=== PATIENT | male | born 1960 | race Caucasian/White ===

== ENCOUNTER 2019-05-25 10:19 | Inpatient (IN) ==
[2019-05-25] MEDS ORDERED: SINEMET 25/100 PO PRN (12:17)
[2019-05-25] MEDS ORDERED: SENOKOT PO PRN (12:17)
[2019-05-25] MEDS ORDERED: BENTYL PO PRN (12:17)
[2019-05-25] MEDS ORDERED: DESYREL PO PRN (12:17)
[2019-05-25] MEDS ORDERED: MOTRIN PO PRN (12:17)
[2019-05-25] MEDS ORDERED: ROBAXIN PO PRN (12:17)
[2019-05-25] MEDS ORDERED: IMODIUM PO PRN (12:17)
[2019-05-25] MEDS ORDERED: DULCOLAX PR PRN (12:17)
[2019-05-25] MEDS ORDERED: D5W 1,000 ML IV PRN (12:17)
[2019-05-25] MEDS ORDERED: PHENOBARBITAL IV PRN (12:17)
[2019-05-25] MEDS ORDERED: ZOFRAN IV PRN (12:17)
[2019-05-25] MEDS ORDERED: TYLENOL PO PRN (12:17)
[2019-05-25] MEDS ORDERED: ATARAX PO PRN (12:17)
[2019-05-25] MEDS ORDERED: ZOFRAN ODT PO PRN (12:17)
[2019-05-25] MEDS ORDERED: MAALOX PLUS LIQUID PO PRN (12:17)
[2019-05-25] MEDS ORDERED: NICODERM PATCH TD PRN (12:17)
[2019-05-25] MEDS: LIBRIUM PO PRN (12:52)
[2019-05-25 12:53] LABS: HEMATOCRIT 36.7 % (42.0-52.0); HEMOGLOBIN 12.1 g/dL (14.0-18.0); MCH 28.7 PG (27-31); MCV 87.2 FL (81-99); MPV 8.5 FL (7.4-10.4); RBC 4.21 XMIL (4.7-6.1); RDW 13.1 % (11.5-14.5); WBC 10.32 X1000 (4.8-10.8)
[2019-05-25] MEDS ORDERED: TUBERSOL ID ONE (13:00)
[2019-05-25 13:08] LABS: AMYLASE 50 U/L (20-200); LIPASE 21 U/L (13-60)
[2019-05-25 13:11] LABS: AGAP 11; ALBUMIN 4.3 g/dL (3.5-5.0); ALKALINE PHOSPHATASE 112 U/L (32-122); BUN 13 mg/dL (8-22); CALCIUM 9.4 mg/dL (8.8-10.2); CHLORIDE 101 mmol/L (98-107); COSMO 282; CREATININE 0.7 mg/dL (0.7-1.2); ESTIMATED GFR > 60; GLUCOSE 116 mg/dL (70-104); GOT 16 U/L (10-34); GPT 26 U/L (10-44); SODIUM 141 mmol/L (136-145); TCO2 29 mmol/L (25-35); TOTAL PROTEIN 7.6 g/dL (6.3-8.3)
[2019-05-25 13:19] LABS: INR 0.81; PROTIME 11.6 Seconds (11.0-16.0)
[2019-05-25 15:21] LABS: UR AMPHETAMINES QUAL NONE DETECTED (NONE DETECT); UR BARBITUATES QUAL NONE DETECTED (NONE DETECT); UR BENZODIAZEPIN QUAL NONE DETECTED (NONE DETECT); UR CANNABINOIDS QUAL NONE DETECTED (NONE DETECT); UR COCAINE QUAL NONE DETECTED (NONE DETECT); UR METHADONE QUAL NONE DETECTED (NONE DETECT); UR METHAMPHETAMINE QUAL NONE DETECTED (NONE DETECT); UR OPIATES QUAL NONE DETECTED (NONE DETECT); UR OXYCODONE QUAL NONE DETECTED (NONE DETECT); UR PCP QUAL NONE DETECTED (NONE DETECT); UR PROPOXYPHENE QUAL NONE DETECTED (NONE DETECT); UR TCA QUAL PRESUMPTIVE POSITIVE (NONE DETECT)
[2019-05-25] MEDS: SUBOXONE 2 MG/0.5 MG FILM SL SCH (18:22)
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
[2019-05-25 19:30] LABS: URINE SOURCE VOIDED
[2019-05-25 19:54] LABS: CLARITY CLEAR (CLEAR); COLOR YELLOW
[2019-05-25 19:55] LABS: BILIRUBIN URINE NEGATIVE (NEGATIVE); BLOOD URINE NEGATIVE (NEGATIVE); GLUCOSE URINE NEGATIVE (NEGATIVE); KETONE URINE NEGATIVE (NEGATIVE); LEUKOCYTES URINE NEGATIVE (NEGATIVE); NITRITE URINE NEGATIVE (NEGATIVE); PROTEIN URINE NEGATIVE (NEGATIVE); UROBILINOGEN URINE NORMAL
[2019-05-25] MEDS: SEROQUEL PO PRN (22:02)
[2019-05-26] MEDS: NS 1,000 ML IV SCH ×3 (04:21→18:34)
[2019-05-26] MEDS: PROTONIX PO SCH (06:25)
[2019-05-26] MEDS: SUBOXONE 2 MG/0.5 MG FILM SL SCH ×2 (06:25→19:29)
[2019-05-26] MEDS: THERA M PLUS PO SCH (08:32)
[2019-05-26] MEDS: FOLIC ACID PO SCH (08:32)
[2019-05-26] MEDS: VITAMIN B-1 PO SCH (08:32)
[2019-05-26] MEDS: LIBRIUM PO PRN (15:20)
--- NOTE | 2019-05-26 19:49 | PROGRESS NOTE ---
DATE: 05/26/2019 SUBJECTIVE: The patient notes overall he is feeling better. Denies any fevers, chills, cough, or congestion. PHYSICAL EXAMINATION: Vital Signs: Reviewed and stable. He is afebrile, temperature 98 degrees, pulse 62, respiratory 22, BP 86/48 to 118/80. General: Patient is awake, alert. He is in no distress. HEENT: Normocephalic. Neck: Supple. Cardiovascular: Regular rate. No murmurs. Chest: Clear, nonlabored. Abdomen: Soft, nondistended. Extremities: Moves all extremities. ASSESSMENT: 1. Nausea and vomiting. 2. Abdominal pain. 3. Myalgias. 4. Paresthesias. 5. Hypotension, improving. 6. Chronic opiate abuse, withdrawal, and admit for stabilization. PLAN: We will continue patient in the hospital at 4 mg Suboxone twice daily. We will not increase due to his low blood pressure. We will continue his IV fluids for a liter. His blood pressures are better, we will follow once he stops the IV fluids. cc: Bc Damon MD
[2019-05-26] MEDS: SEROQUEL PO PRN (21:50)
[2019-05-27] MEDS: NS 1,000 ML IV SCH ×2 (01:08→08:21)
[2019-05-27] MEDS: PROTONIX PO SCH (06:12)
[2019-05-27 07:32] VITALS: BP 92/62
[2019-05-27] MEDS: VITAMIN B-1 PO SCH (08:22)
[2019-05-27] MEDS: SUBOXONE 2 MG/0.5 MG FILM SL SCH (08:22)
[2019-05-27] MEDS: THERA M PLUS PO SCH (08:22)
[2019-05-27] MEDS: FOLIC ACID PO SCH (08:22)
--- NOTE | 2019-05-28 19:03 | DISCHARGE SUMMARY ---
ADMISSION DATE: 05/25/2019 DISCHARGE DATE: 05/27/2019 DISCHARGE DIAGNOSES: 1. Nausea and vomiting. 2. Abdominal pain. 3. Myalgias. 4. Paresthesias. 5. Paroxysmal sweating. 6. Opiate abuse, withdrawal and stabilization. 7. Recent head trauma with subdural hematoma, status post evacuation, currently still with victor m with well-healing wound. CONSULTATIONS: None. PROCEDURES: None. BRIEF HOSPITAL COURSE: The patient is a 58-year-old male who presented to [facility] program secondary to nausea, vomiting, abdominal pain, myalgias and tremors. He was treated in the usual fashion, placed on Suboxone. Dose was kept stable at 4 mg. His blood pressures were low but were stable. On discharge the patient is awake, alert. He is in no distress. The patient thankfully had an uneventful hospital course. He was admitted, placed on Suboxone. He continued to improve. On discharge the patient is in no distress. He states he is feeling better. His victor m were removed. His scalp is well healing. DISPOSITION: The patient will be discharged home. Discussed with him that he needs to avoid all persons, places and situations in which he has been using and abusing in the past. He needs outpatient life counseling as well as drug counseling. He will follow up outpatient with treatment facility of choice. cc: Bc Damon MD
== END 2019-05-27 14:39 | disposition home or self-care (01) | DRG 897 ==
LOC: P.DIRADM 11:03 → P.MEDSURG 11:21
PROVIDERS: ADMIT Family Medicine; ATTEND Family Medicine
CPT/HCPCS: 80053; 80104; 80301; 80305; 80307; 80320; 82055; 82150; 83690; 85027; 85610; 86580; A9270; G0431; G0434; G0477; G0480; G6040; J7030